=== PATIENT | male | born 1985 | race American Indian/Alaskan Native ===

== ENCOUNTER 2017-05-09 08:39 | Emergency (ER) | payer MEDICAID, OTHER ==
[2017-05-09 08:39] VITALS: BMI 24.4
[2017-05-09 08:53] VITALS: TEMP 98.7
--- NOTE | 2017-05-09 09:10 | ED PDOC ---
Arrival/HPI - General Chief Complaint: Lower Extremity Problem/Injury Time Seen by Provider: 05/09/17 08:58 Historian: Patient - Critical Care Narrative Critical Care (Text): 05/09/17 09:10 A 31 year old male smoker, who denies any significant past medical history, presents to the emergency department for a twisted right knee, which occurred yesterday when messing around with friends. The patient reports his knee became swollen and painful overnight, he states he unable to bare weight on it. The patient admits to occasional drinking, but denies any drug usage. He also denies any fever, chest pain, shortness of breath, abdominal pain, or any other complaints at this time. - History of Present Illness Time/Duration: 24 hours Symptom Onset: Sudden Symptom Course: Unchanged Activities at Onset: Other (messing around with friends) Context: Home Past Medical History - Provider Review Nursing Documentation Reviewed: Yes - Infectious Disease Hx of Infectious Diseases: None - Past Medical History Past Medical History: No Previous - Psychiatric Hx Substance Use: No - Past Surgical History Past Surgical History: No Previous - Surgical History Other/Comment: inguinal surgery - Anesthesia Hx Anesthesia Reactions: No - Suicidal Assessment Feels Threatened In Home Enviroment: No Family/Social History - Physician Review Nursing Documentation Reviewed: Yes Family/Social History: No Known Family HX Smoking Status: Never Smoked Hx Alcohol Use: No Hx Substance Use: No Hx Substance Use Treatment: No Allergies/Home Meds Allergies/Adverse Reactions: Allergies No Known Allergies Allergy (Verified 11/26/14 19:35) Review of Systems - Physician Review All systems were reviewed & negative as marked: Yes - Review of Systems Constitutional: absent: Fevers Respiratory: absent: SOB Cardiovascular: absent: Chest Pain Gastrointestinal: absent: Abdominal Pain Musculoskeletal: Other (right knee pain) Physical Exam Vital Signs Reviewed: Yes Vital Signs Temp Pulse Resp BP Pulse Ox 05/09/17 08:49 98.7 F 80 16 132/83 98 Temperature: Afebrile Blood Pressure: Normal Pulse: Regular Respiratory Rate: Normal Appearance: Positive for: Well-Appearing, Non-Toxic, Comfortable Pain Distress: None Mental Status: Positive for: Alert and Oriented X 3 - Systems Exam Lower Extremity: Present: Edema (right knee edema with effusion), Tenderness ( tenderness to the medial joint line), Other (Ankle and hip are normal ). No: Normal ROM (limited ROM secondary pain) Skin: Present: Warm, Dry, Normal Color, Other. No: Rashes Psychiatric: Present: Alert, Oriented x 3, Normal Insight, Normal Concentration Medical Decision Making ED Course and Treatment: 05/09/17 09:16 Impression: A 31 year old male with right knee pain. Differential Diagnosis included but are not limited to: Plan: -- Radiology: Right Knee -- Reassess and disposition Progress Notes: Patient brought his own crutches in from home. 05/09/17 10:26 Suspect medial meniscus tear. Patient will need to follow up with his PMD for an outpatient MRI. Rest ice and elevation. Note for work was given. Follow up in ER as needed. - RAD Interpretation Radiology Orders: 05/09/17 09:03 KNEE RIGHT 2 VIEWS (AP & LAT) [RAD] Stat Right knee shows no fracture or dislocation. Paralegal Supervisor: ED Physician - Medication Orders Current Medication Orders: Discontinued Medications Oxycodone/Acetaminophen (Percocet 5/325 Mg Tab) 2 tab PO STAT STA Stop: 05/09/17 09:52 Last Admin: 05/09/17 09:59 Dose: 2 tab MAR Pain Assessment Document 05/09/17 09:59 MN (Rec: 05/09/17 10:00 MN [id number]) Pain Reassessment Is this a pain reassessment? No Sleep Is patient sleeping during reassessment? No Presence of Pain Presence of Pain Yes Pain Scale Used Pain Scale Used Numeric Location Left, Right or Bilateral Right Pain Location Body Site Knee Description Description Throbbing Intensity of Pain at present 10 Acceptable Level of Pain 2 Pain Behavior Facial Grimacing - Scribe Statement The provider has reviewed the documentation as recorded by the Elgin Melendez Provider Scribe Attestation: All medical record entries made by the Scribe were at my direction and personally dictated by me. I have reviewed the chart and agree that the record accurately reflects my personal performance of the history, physical exam, medical decision making, and the department course for this patient. I have also personally directed, reviewed, and agree with the discharge instructions and disposition. Disposition/Present on Arrival - Present on Arrival Any Indicators Present on Arrival: No History of DVT/PE: No History of Uncontrolled Diabetes: No Urinary Catheter: No History of Decub. Ulcer: No History Surgical Site Infection Following: None - Disposition Have Diagnosis and Disposition been Completed?: Yes Diagnosis: Knee sprain, Acute medial meniscus tear of right knee Disposition: HOME/ ROUTINE Disposition Time: 10:27 Patient Plan: Discharge Condition: GOOD Discharge Instructions (ExitCare): Knee Sprain (ED) Additional Instructions: Rest ice and elevation. Follow-up with PMD for outpatient MRI. Follow up in ER as needed. Prescriptions: oxyCODONE/Acetaminophen [Percocet 5/325 mg Tab] 1 ea PO Q6 #15 tab Referrals: PCP,NO [Primary Care Provider] - Follow up with primary [facility] [place] - Follow up with primary Forms: [facility] (L[place]uanian), WORK NOTE
[2017-05-09] MEDS ORDERED: Oxycodone/Acetaminophen 5/325 mg Tab PO STA (09:51)
[2017-05-09 10:41] VITALS: BP 145/87; PULSE 66; RESP 16; O2SAT 97
--- NOTE | 2017-05-09 12:28 | RAD ---
PROCEDURE: Right Knee Radiographs. HISTORY: trauma COMPARISON: None. FINDINGS: BONES: No definite fracture. There is disruption in the normal smooth contour of the articular surface of the medial tibial plateau. Possible nondisplaced fracture. This may also be artifactual. . JOINTS: Normal. No osteoarthritis. JOINT EFFUSION: There is a small joint effusion. Given the presence of a questionable medial tibial plateau fracture and joint effusion/ hemarthrosis, consider further evaluation. OTHER FINDINGS: None. IMPRESSION: Questionable fracture of medial tibial plateau. Small joint effusion/ hemarthrosis. Consider further evaluation with computed tomography if clinically warranted. .
== END 2017-05-09 10:45 | disposition home or self-care (01) ==
LOC: ED 08:39
DX: S83.241A Other tear of medial meniscus, current injury, right knee, initial encounter (principal); X50.1XXA Overexertion from prolonged static or awkward postures, initial encounter; Y93.89 Activity, other specified; Y92.89 Other specified places as the place of occurrence of the external cause